=== PATIENT | female | born 1995 | race Caucasian/White ===

== ENCOUNTER 2024-05-13 17:53 | Emergency (ER) | payer SELFPAY ==
[~2024-05-13] VITALS: Ht 157.5 cm; Wt 68.0 kg
[2024-05-13 18:04] VITALS: TEMP 36.7; O2SAT 98
[2024-05-13] MEDS ORDERED: IBUPROFEN 400MG TABLET PO ONE (20:00)
[2024-05-13] MEDS ORDERED: ACETAMINOPHEN 325MG TABLET PO ONE (20:00)
[2024-05-13] MEDS: IBUPROFEN 400MG TABLET PO NR (21:41)
[2024-05-13] MEDS: ACETAMINOPHEN 325MG TABLET PO NR (21:41)
[2024-05-14] MEDS ORDERED: ACET-2708 MT (00:34)
[2024-05-14] MEDS ORDERED: LIDO700A30 TP (00:34)
[2024-05-14] MEDS ORDERED: IBUP-2028 MT (00:34)
[2024-05-14 01:06] VITALS: BP 102/67; PULSE 70; RESP 18; O2SAT 100
[2024-05-14] MEDS ORDERED: LIDOCAINE 5% PATCH TOP SCH (09:00)
== END 2024-05-14 01:06 | disposition home or self-care (01) ==
LOC: ER 17:53
DX: M54.2 Cervicalgia (principal); M54.9 Dorsalgia, unspecified; Z79.899 Other long term (current) drug therapy; V89.2XXA Person injured in unspecified motor-vehicle accident, traffic, initial encounter; Y93.89 Activity, other specified; Y92.89 Other specified places as the place of occurrence of the external cause; Y99.8 Other external cause status
CPT/HCPCS: 71045; 93005; 99283

== ENCOUNTER 2024-05-14 22:06 | Emergency (ER) | payer SELFPAY ==
[~2024-05-14] VITALS: Ht 154.9 cm; Wt 68.0 kg
[~2024-05-14 22:06] MED LIST: ACET-2708 MT; IBUP-2028 MT; LIDO700A30 TP
[2024-05-14 22:32] VITALS: BP 129/80; PULSE 98; RESP 18; TEMP 36.9; O2SAT 100
== END 2024-05-15 00:38 | disposition home or self-care (01) ==
LOC: ER 22:06
DX: M54.2 Cervicalgia (principal); M54.9 Dorsalgia, unspecified; Z79.899 Other long term (current) drug therapy; V89.2XXA Person injured in unspecified motor-vehicle accident, traffic, initial encounter; Y93.89 Activity, other specified; Y92.89 Other specified places as the place of occurrence of the external cause; Y99.8 Other external cause status
CPT/HCPCS: 99281